=== PATIENT | male | born 1990 | race Caucasian/White ===

== ENCOUNTER 2019-06-21 08:52 | Emergency (ER) | payer OTHER ==
[~2019-06-21] VITALS: Ht 190.5 cm; Wt 70.0 kg
[2019-06-21 09:00] VITALS: BP 132/79
[2019-06-21] MEDS ORDERED: proparacaine 0.5% ophthalmic drops 15ml EACHEYE ONE (09:10)
--- NOTE | 2019-06-21 09:23 | NUR ---
VISUAL ACCUITY DONE [facility] PRIOR TO NUMBING DROPS THERE.
[2019-06-21] MEDS ORDERED: erythromycin ophthalmic ointment 1gm tube RIGHTEYE ONE (09:40)
[2019-06-21] MEDS ORDERED: TETanus/Pertussis (Acell)/Diphther VAC/PF (Tdap-Adult) 0.5ml syringe IMVAC ONE (09:40)
[2019-06-21] MEDS ORDERED: HYDR-3965 PO (10:25)
== END 2019-06-21 10:46 | disposition home or self-care (01) ==
LOC: ER 08:52
DX: T15.01XA Foreign body in cornea, right eye, initial encounter (principal); G43.909 Migraine, unspecified, not intractable, without status migrainosus; F32.9 Major depressive disorder, single episode, unspecified; F43.10 Post-traumatic stress disorder, unspecified; F17.200 Nicotine dependence, unspecified, uncomplicated; Z79.899 Other long term (current) drug therapy; X58.XXXA Exposure to other specified factors, initial encounter; Y93.89 Activity, other specified; Y92.89 Other specified places as the place of occurrence of the external cause; Y99.8 Other external cause status
CPT/HCPCS: 65222; 90471; 90715; 99284

== ENCOUNTER 2020-09-01 16:13 | Emergency (ER) | payer OTHER ==
[~2020-09-01] VITALS: Ht 188 cm; Wt 76.4 kg
[2020-09-01] MEDS ORDERED: normal saline 1000ML IV soln IVB ONE (17:05)
[2020-09-01] MEDS ORDERED: LORazepam 2 mg/ml vial IV ONE (17:05)
[2020-09-01 17:40] LABS: BASOPHILS % (AUTO) 0.4 % (0-1); EOSINOPHILS # (AUTO) 0.2 X10'3 (0-0.9); HEMATOCRIT 45.1 % (42.0-52.0); HEMOGLOBIN 15.3 g/dl (14.0-17.9); LYMPHOCYTES # (AUTO) 1.8 X10'3 (1.1-4.8); LYMPHOCYTES % (AUTO) 17.1 % (21-51); MEAN CORPUSCULAR HEMOGLOBIN 29.7 PG (27.0-31.0); MEAN CORPUSCULAR HGB CONC 33.8 g/dL (33.0-36.5); MEAN CORPUSCULAR VOLUME 87.8 FL (78-98); MEAN PLATELET VOLUME 7.9 FL (7.4-10.4); MONOCYTES % (AUTO) 9.7 % (2-12); NEUTROPHILS # (AUTO) 7.3 X10'3 (1.8-7.7); NEUTROPHILS % (AUTO) 70.8 % (42-75); PLATELET COUNT 225 X10'3 (140-440); RED BLOOD COUNT 5.14 X10'6 (4.70-6.10); RED CELL DISTRIBUTION WIDTH 13.5 % (11.5-14.5); WHITE BLOOD COUNT 10.3 X10'3 (4.5-11.0)
[2020-09-01 17:48] LABS: ALANINE AMINOTRANSFERASE 29 U/L (12-78); ALBUMIN 4.7 G/DL (3.4-5.0); ALBUMIN/GLOBULIN RATIO 1.4 (1.1-1.5); ALKALINE PHOSPHATASE 73 IU/L (46-116); ANION GAP 11 (8-16); ASPARTATE AMINO TRANSFERASE 19 U/L (10-37); BILIRUBIN,TOTAL 0.6 MG/DL (0.1-1.0); BLOOD UREA NITROGEN 14 MG/DL (7-18); BUN/CREATININE RATIO 15.6 (5.4-32.0); CALCIUM 9.7 MG/DL (8.5-10.1); CHLORIDE 104 MMOL/L (99-107); GLUCOSE 96 MG/DL (70-104); POTASSIUM 3.5 MMOL/L (3.5-5.1); SODIUM 143 MMOL/L (135-145); TOTAL CARBON DIOXIDE 28.1 MMOL/L (24-32); eGFR > 90 ML/MIN
[2020-09-01 17:51] LABS: TROPONIN I < 0.04 NG/ML (0.0-0.05)
[2020-09-01 18:20] LABS: ETHANOL < 0.010 GM/DL (0.0-0.010)
--- NOTE | 2020-09-01 18:40 | NUR ---
ABRAHAM MCKEON STATES THAT PT PANIC AND ANXIETY HAS RESOLVED AND HE IS NOT IN NEED OF THE PREVIOUS ORDER TO RECEIVE AND IV IVF AND ATIVAN IV . PT VERBALIZED AT THIS TIME HE IS FEELING BETTER AND DOES NOT NEED MEDICATION OR FLUIDS PT AWAITING DISCHARGE ORDERS AT THIS TIME
[2020-09-01 19:02] VITALS: BP 148/59
== END 2020-09-01 19:05 | disposition home or self-care (01) ==
LOC: ER 16:13
DX: F41.9 Anxiety disorder, unspecified (principal); R20.0 Anesthesia of skin; R20.2 Paresthesia of skin; R42 Dizziness and giddiness; G43.909 Migraine, unspecified, not intractable, without status migrainosus; Z72.89 Other problems related to lifestyle
CPT/HCPCS: 36415; 71045; 80053; 80320; 84443; 84484; 85025; 93005; 99285

== ENCOUNTER 2022-08-21 03:47 | Emergency (ER) | payer OTHER ==
[~2022-08-21] VITALS: Ht 188 cm; Wt 73.6 kg
[2022-08-21 03:50] VITALS: BP 120/86
[2022-08-21] MEDS ORDERED: proparacaine 0.5% ophthalmic drops 15ml EACHEYE ONE (04:30)
[2022-08-21] MEDS ORDERED: ciprofloxacin 0.3% 2.5ml ophthalmic solution LEFTEYE ONE (04:45)
== END 2022-08-21 05:05 | disposition home or self-care (01) ==
LOC: ER 03:48
DX: S05.02XA Injury of conjunctiva and corneal abrasion without foreign body, left eye, initial encounter (principal); G43.909 Migraine, unspecified, not intractable, without status migrainosus; X58.XXXA Exposure to other specified factors, initial encounter; Y93.89 Activity, other specified; Y92.89 Other specified places as the place of occurrence of the external cause; Y99.8 Other external cause status
CPT/HCPCS: 99283